=== PATIENT | female | born 1995 | race Caucasian/White ===

== ENCOUNTER 2017-04-24 19:33 | Emergency (ER) | payer OTHER, SELFPAY ==
[2017-04-24 19:43] VITALS: BP 110/67; PULSE 97; RESP 18; TEMP 36.5; O2SAT 99; BMI 22.1
--- NOTE | 2017-04-24 21:21 | HMH.EDUTC ---
[facility] [place] Clinical Impression: Viral upper respiratory illness Disposition: Home, Self-Care Condition on Discharge: Good Instructions: DI for Viral Upper Respiratory Infection -- Adult Additional Instructions: * No sign of bacterial infection. Likely viral. Virus can take 7-14 days to run their course * Monitor Temp. Tylenol every 4 hours as needed no more then 5 times a day or 4000mg in 24 hours and/or ibuprofen every 6 hours as needed no more then 3200mg in 24 hours (as long as your primary care doctor has told you that it is ok to take both) for fever/aches/pain. ER if fever no less than 101 despite tylenol and ibuprofen * Encourage fluids, water, gatorade, powerade, pedialyte if infant/toddler/child * warm salt water gargles * warm fluids * sore throat lozenges * sleep elevated * humidifier/vaporizer * Bromfed may cause drowsiness. Know how it effects you (or your child) before driving, caring for small children, or sending your child to school. No other antihistamines/allergy medications while taking bromfed. * * Your throat swab was sent for culture. Those results are typically sent to your primary care. Be sure to follow up in 2-3 days if no improvement so they can review those results and treat if necessary. If you don't have primary care, I recommend you get one but in the mean time, you will have to return to a walk in clinic. See primary care IMMEDIATELY for new or worsening symptoms OR no noticeable improvement over the next 48-72 hours. 911 for difficulty breathing or swallowing. Prescriptions: Brompheniramine/Pseudoephed/Dm [Bromfed DM Cough Syrup 5mL] 10 ml PO QID PRN #240 syrup PRN Reason: Cough Time of Disposition: 21:28 Medical Decision Making Vital Signs: 04/24/17 19:43 Temperature 97.7 F Temperature Source Temporal Artery Scan Pulse Rate [Brachial] 97 H Respiratory Rate 18 Blood Pressure [Right Arm] 110/67 Blood Pressure Mean [Right Arm] 81 Blood Pressure Source [Right Arm] Automatic Cuff Blood Pressure Position [Right Arm] Sitting 02 Sat by Pulse Oximetry 99 Oxygen Delivery Method Room Air - Lab Data Lab Results 04/24/17 19:48: Influenza Type A Ag Negative, Influenza Type B Ag Negative 04/24/17 19:48: Strep Scn Rapid Clinic [facility] Orders (Tests/Meds): ORDERS Category Date Time Status Strep Screen Confirmation Stat Micro 04/24/17 19:48 Received - Mick Inquiry Pt receiving controlled substance: No [facility] [place] - General Stated complaint: Fever,Coughing,Chills,Congestion Time Seen by Provider: 04/24/17 21:10 Mode of Arrival: Ambulatory Source of Information: Patient Limitations: No Limitations Description of Symptoms (Recalled from Triage Doc. by RN): COUGH, FEVER, CHILLS AND HOARSE FOR A FEW DAYS HEENT Symptoms (Recalled from RN notes): Yes Resp Symptoms (Recalled from RN notes): Yes Skin Symptoms (Recalled from RN notes): No MS Symptoms (Recalled from RN notes): No Functional Status (Recalled from RN notes): NA - History of Present Illness Provider Complaint: c/o rhinorrhea, nasal congestion, nonprod cough x 2-3 days. Robitussin and allergy medication hasn't helped. No known sick contacts. Denies SOA. Not sure about flu vaccine. - Related Data Previous Rx's Medication Instructions Recorded Brompheniramine/Pseudoephed/Dm 10 ml PO QID PRN #240 syrup 04/24/17 [Bromfed DM Cough Syrup 5mL] Allergies Allergy/AdvReac Type Severity Reaction Status Date / Time No Known Allergies Allergy Verified 04/24/17 19:47 - Worker's Comp Is this a Worker's Comp case?: No [facility] History I have reviewed the patient's past medical history: Yes (denies pertinent med hx) Medical History: Denies:: Diabetes Mellitus Type 1, Diabetes Mellitus Type 2, Hypertension Other Surgeries: Yes: Appendectomy Comment: mesha - *Social History Smoking Status: Current every day smoker Tobacco Type: smokeless tobacco Alcohol Intake: never - Psychiatric History Exp
[2017-04-24 21:25] LABS: UTC Influenza A Antigen Negative (Negative); UTC Influenza B Antigen Negative (Negative)
== END 2017-04-24 21:42 | disposition home or self-care (01) ==
PROVIDERS: Emergency Provider Nurse Practitioner Family; Family Provider Nurse Practitioner Family; PCP Nurse Practitioner Obstetrics & Gynecology
DX: J06.9 Acute upper respiratory infection, unspecified (principal); F17.290 Nicotine dependence, other tobacco product, uncomplicated
CPT/HCPCS: 87276; 87430; 87804; 87880; 99202

== ENCOUNTER 2017-05-26 00:53 | Emergency (ER) | payer OTHER, SELFPAY ==
[2017-05-26 00:58] VITALS: BP 130/90; PULSE 106; RESP 16; TEMP 36.8; O2SAT 97; BMI 21.2
--- NOTE | 2017-05-26 01:16 | XR_ITS ---
XR foot LT min 3V HISTORY: Post traumatic pain ITS.REASON: FALL ORDERING PHYSICIAN: Vic Ramos MD PATIENT AGE: 22 years COMPARISON: None FINDINGS: No fracture or dislocation. No lytic or blastic change. There is normal mineralization.. The joint spaces are well-preserved. No significant degenerative/arthritic changes. No erosive changes evident. IMPRESSION: Negative, no acute finding
--- NOTE | 2017-05-26 01:16 | XR_ITS ---
XR ankle LT min 3V HISTORY: Posttraumatic pain ITS.REASON: fall ORDERING PHYSICIAN: Vic Ramos MD PATIENT AGE: 22 years COMPARISON: None FINDINGS: No fracture or dislocation. No lytic or blastic change. There is normal mineralization.. The joint spaces are well-preserved. No significant degenerative/arthritic changes. No erosive changes evident. IMPRESSION: Negative ankle, no acute finding
--- NOTE | 2017-05-26 01:59 | HMH.EDEXTP ---
ED Disposition Clinical Impression: Ankle sprain and strain Sprain of foot, left Qualifiers: Encounter type: initial encounter Qualified Code(s): S93.602A - Unspecified sprain of left foot, initial encounter Disposition: Home, Self-Care Condition on Discharge: Good Instructions: Sprain Additional Instructions: wt bearing as carrie and see pcp or dr powell for follow up - Critical Care Critical Care Time: No Attestation: On 05/26/17, the high probability of a clinically significant, sudden or life threatening deterioration of the following system(s) required my full and direct attention, intervention and personal management. The time I documented below is in addition to time spent performing reported procedures but includes the following listed in this critical care notation. Medical Decision Making - Medical Records Medical records reviewed: Yes: I reviewed the patient's medical records. Vital Signs: 05/26/17 00:58 Temperature 98.2 F Temperature Source Oral Pulse Rate [Right Brachial] 106 H Respiratory Rate 16 Blood Pressure [Right Arm] 130/90 Blood Pressure Mean [Right Arm] 103 Blood Pressure Source [Right Arm] Automatic Cuff Blood Pressure Position [Right Arm] Sitting 02 Sat by Pulse Oximetry 97 Oxygen Delivery Method Room Air Orders (Tests/Meds): ORDERS Category Date Time Status Ankle XR - Left 2 Views [XR ankle LT 2V] Stat Exams 05/26/17 01:16 Taken Foot XR left 2 views [XR foot LT 2V] Stat Exams 05/26/17 01:16 Taken - Radiology Data #1 Image(s): Ankle, Foot/Toes Image Reviewed: Yes I reviewed the patient's radiology image Preliminary Findings: No Fracture Seen - Mick Inquiry Pt receiving controlled substance: No Extremity Problem HPI - General Chief complaint: Extremity Injury, Lower Stated complaint: AO 05/25/17 0500 fell lft ankle Time Seen by Provider: 05/26/17 01:59 Mode of Arrival: Ambulatory Source of Information: Patient, Significant Other, Medical Record Limitations: No Limitations Description of Symptoms (Recalled from ER Triage Doc. by RN): LEFT FOOT AND ANKLE PAIN S/P FALL - History of Present Illness HPI Narrative: slip injury with lt foot and ankle injury MD Complaint: extremity pain Onset (ago): hour(s) Consistency: constant Location: left, lower extremity Exacerbating factors: weight bearing - Related Data Home Medications Medication Instructions Recorded Confirmed No Known Home Medications [No 05/26/17 05/26/17 Known Home Medications] Allergies Allergy/AdvReac Type Severity Reaction Status Date / Time No Known Allergies Allergy Verified 04/24/17 19:47 [facility] History I have reviewed the patient's past medical history: Yes Medical History: Denies:: Diabetes Mellitus Type 1, Diabetes Mellitus Type 2, Hypertension Other Surgeries: Yes: Appendectomy - *Social History Smoking Status: Current every day smoker Tobacco Type: smokeless tobacco Alcohol Intake: never - Psychiatric History Expresses thoughts of harming self/others: None Suicide Plan Description: No Plan ROS Obtained: Yes All systems reviewed & no additional complaints - Constitutional Constitutional: Denies fever(s) - Eyes Eyes: Denies change in vision - ENT Ears, Nose, Mouth, and Throat: Denies change in voice - Cardiovascular Cardiovascular: Denies chest pain at rest - Respiratory Respiratory: No chest congestion, No cough - Gastrointestinal Gastrointestingal: Denies: nausea - Musculoskeletal Musculoskeletal: Reports joint pain, Denies joint swelling - Integumentary/Breasts Skin/Breast: Denies rash - Neurologic Neurologic: Denies seizure-like activity Physical Exam - General General appearance: alert, in no apparent distress - Head Head exam: normocephalic - Eye Eye exam: Present: PERRL, EOMI - ENT ENT exam: Present: mucous membranes moist - Neck Neck exam: Present: trachea midline - Respiratory Respirator
--- NOTE | 2017-05-26 02:02 | ED_ITS ---
ED Disposition Clinical Impression: Ankle sprain and strain Sprain of foot, left Qualifiers: Encounter type: initial encounter Qualified Code(s): S93.602A - Unspecified sprain of left foot, initial encounter Disposition: Home, Self-Care Condition on Discharge: Good Instructions: Sprain Additional Instructions: wt bearing as carrie and see pcp or dr powell for follow up - Critical Care Critical Care Time: No Attestation: On 05/26/17, the high probability of a clinically significant, sudden or life threatening deterioration of the following system(s) required my full and direct attention, intervention and personal management. The time I documented below is in addition to time spent performing reported procedures but includes the following listed in this critical care notation. Medical Decision Making - Medical Records Medical records reviewed: Yes: I reviewed the patient's medical records. Vital Signs: 05/26/17 00:58 Temperature 98.2 F Temperature Source Oral Pulse Rate [Right Brachial] 106 H Respiratory Rate 16 Blood Pressure [Right Arm] 130/90 Blood Pressure Mean [Right Arm] 103 Blood Pressure Source [Right Arm] Automatic Cuff Blood Pressure Position [Right Arm] Sitting 02 Sat by Pulse Oximetry 97 Oxygen Delivery Method Room Air Orders (Tests/Meds): ORDERS Category Date Time Status Ankle XR - Left 2 Views [XR ankle LT 2V] Stat Exams 05/26/17 01:16 Taken Foot XR left 2 views [XR foot LT 2V] Stat Exams 05/26/17 01:16 Taken - Radiology Data #1 Image(s): Ankle, Foot/Toes Image Reviewed: Yes I reviewed the patient's radiology image Preliminary Findings: No Fracture Seen - Mick Inquiry Pt receiving controlled substance: No Extremity Problem HPI - General Chief complaint: Extremity Injury, Lower Stated complaint: AO 05/25/17 0500 fell lft ankle Time Seen by Provider: 05/26/17 01:59 Mode of Arrival: Ambulatory Source of Information: Patient, Significant Other, Medical Record Limitations: No Limitations Description of Symptoms (Recalled from ER Triage Doc. by RN): LEFT FOOT AND ANKLE PAIN S/P FALL - History of Present Illness HPI Narrative: slip injury with lt foot and ankle injury MD Complaint: extremity pain Onset (ago): hour(s) Consistency: constant Location: left, lower extremity Exacerbating factors: weight bearing - Related Data Home Medications Medication Instructions Recorded Confirmed No Known Home Medications [No 05/26/17 05/26/17 Known Home Medications] Allergies Allergy/AdvReac Type Severity Reaction Status Date / Time No Known Allergies Allergy Verified 04/24/17 19:47 [facility] History I have reviewed the patient's past medical history: Yes Medical History: Denies:: Diabetes Mellitus Type 1, Diabetes Mellitus Type 2, Hypertension Other Surgeries: Yes: Appendectomy - *Social History Smoking Status: Current every day smoker Tobacco Type: smokeless tobacco Alcohol Intake: never - Psychiatric History Expresses thoughts of harming self/others: None Suicide Plan Description: No Plan ROS Obtained: Yes All systems reviewed & no additional complaints - Constitutional Constitutional: Denies fever(s) - Eyes Eyes: Denies change in vision - ENT Ears, Nose, Mouth
[2017-05-26 02:17] VITALS: BP 130/90; PULSE 100; RESP 16; TEMP 36.8
== END 2017-05-26 02:18 | disposition home or self-care (01) ==
PROVIDERS: Emergency Provider Emergency Medicine; Family Provider Nurse Practitioner Family
DX: S93.602A Unspecified sprain of left foot, initial encounter (principal); S99.912A Unspecified injury of left ankle, initial encounter; W19.XXXA Unspecified fall, initial encounter; Z72.0 Tobacco use
CPT/HCPCS: 73600; 73610; 73620; 73630; 99281

== ENCOUNTER 2017-11-02 17:06 | Outpatient (CLI) | payer OTHER, SELFPAY ==
[2017-11-02 17:13] VITALS: BP 111/62; PULSE 84; RESP 18; TEMP 36.8; O2SAT 97; BMI 22.4
[2017-11-02 17:55] LABS: Appearance,Urine CLEAR (Clear); Bilirubin,Urine Negative (Negative); Blood, Urine Negative (Negative); Color,Urine YELLOW (Yellow); Glucose,Urine (UA) Negative (Negative); Ketones,Urine Negative (Negative); Leukocyte Esterase,Urine 2+ (Negative); Microscopic, Urine URINE MICROSCOPIC (MICROSCOPIC); Nitrate,Urine Negative (Negative); Protein,Urine Negative (Negative); Urobilinogen,Urine 0.2 EU/dl (0.2)
[2017-11-02 18:17] LABS: Bacteria,Urine 3+ /lpf; RBC,Urine Occasional #/hpf (0-3)
== END 2017-11-02 18:22 | disposition home or self-care (01) ==
LOC: OBOUT 17:10 → OB 17:10
PROVIDERS: Visit Provider Obstetrics & Gynecology
DX: O26.92 Pregnancy related conditions, unspecified, second trimester (principal); Z3A.20 20 weeks gestation of pregnancy; R10.30 Lower abdominal pain, unspecified
CPT/HCPCS: 59025; 81001; 87086